=== PATIENT | female | born 1955 | race African-American/Black ===

== ENCOUNTER 2020-09-03 11:55 | Emergency (ER) | payer OTHER, SELFPAY ==
--- NOTE | ~2020-09-03 | US_ITS ---
EXAMINATION: US venous doppler LE RT DATE: 09/03/2020 14:09 INDICATION: Right lower limb pain. TECHNIQUE: Grayscale ultrasound images without and with compression and Doppler ultrasound images of the right lower extremity veins were obtained. COMPARISON: None. FINDINGS: The visualized portions of right common femoral vein, profunda (deep) femoral vein, femoral vein, pop liteal vein, peroneal veins, posterior tibial veins, and greater saphenous vein outflow are patent. IMPRESSION: 1. No deep venous thrombosis. Reviewed, dictated and finalized at location A. [employer]
[2020-09-03 12:19] VITALS: BP 160/89; PULSE 79; RESP 17; TEMP 36.2; O2SAT 98
[2020-09-03 12:29] VITALS: BP 160/89; PULSE 79; RESP 15; TEMP 36.2; O2SAT 98
--- NOTE | 2020-09-03 14:24 | ED.GENADULT ---
HPI - General Adult General Chief complaint: Extremity Injury, Lower Stated complaint: Right Leg Pain Time Seen by Provider: 09/03/20 12:43 Source: patient Mode of arrival: ambulatory Limitations: no limitations History of Present Illness HPI narrative: Patient is a 64-year-old female who presents with right leg pain that has been present now off and on for several weeks worse with activity and movement with intermittent cramping when she is more active in the calf. Patient notes that over the last several days she has had anterior right goldman pain is a mild aching pain. Patient denies injury or trauma or similar occurrence in the past. Patient has not taken anything for his symptoms. Patient denies chest pain shortness of breath URI symptoms Related Data Allergies Allergy/AdvReac Type Severity Reaction Status Date / Time codeine Allergy Nausea and Verified 09/03/20 12:18 Vomiting Review of Systems Review of Systems: All systems reviewed & are unremarkable except as noted in HPI and below PMFSH Past Medical History Medical History Arthritis Social History Social History (Updated 09/03/20 @ 14:25 by Stephen Wilson PA-C) Smoking status: Never smoker Gender identity (if verbalized by the patient): Female Exam Narrative: Exam Narrative: GENERAL: Well-appearing, well-nourished, and in no acute distress. HEAD: Normocephalic, atraumatic. EYES: PERRLA and EOMI. ENT: Nares clear, no rhinorrhea or epistaxis. Mucous membranes moist. CHEST: Clear to auscultation. No respiratory distress. No wheezes rales or rhonchi HEART: Regular rate and rhythm. No murmur heard. Normal peripheral pulses. EXTREMITIES: Normal range of motion. No edema. No deformity of the right lower extremity mild tenderness to the anterior right goldman SKIN: Warm, dry, no rash. NEURO: No focal deficits. Alert and oriented x3. Cranial nerves II through XII grossly intact PSYCH: Normal mood and affect. Course Course Emergency Course: Patient presented with concern for DVT in no distress no blood clot on ultrasound will be discharged with outpatient follow-up with primary care provided with reasons to return Vital Signs Vital signs: Vital Signs Temperature 97.1 F L 09/03/20 12:19 Pulse Rate 79 09/03/20 12:19 Respiratory Rate 17 09/03/20 12:19 Blood Pressure 160/89 H 09/03/20 12:19 Pulse Oximetry 98 09/03/20 12:19 Temperature 97.1 F L 09/03/20 12:29 Pulse Rate 79 09/03/20 12:29 Respiratory Rate 15 09/03/20 12:29 Blood Pressure 160/89 H 09/03/20 12:29 Pulse Oximetry 98 09/03/20 12:29 Medical Decision Making MDM Narrative Medical decision making narrative: Patients injury or pain is consistent with musculoskeletal etiology. No signs of neurological or vascular compromise on exam. Compartments and tisues are soft without signs of compartment syndrome. Pain is felt appropriate for further evaluation on an outpatient basis. Vital Signs Vital Signs: Vital Signs Temperature 97.1 F L 09/03/20 12:19 Pulse Rate 79 09/03/20 12:19 Respiratory Rate 17 09/03/20 12:19 Blood Pressure 160/89 H 09/03/20 12:19 Pulse Oximetry 98 09/03/20 12:19 Temperature 97.1 F L 09/03/20 12:29 Pulse Rate 79 09/03/20 12:29 Respiratory Rate 15 09/03/20 12:29 Blood Pressure 160/89 H 09/03/20 12:29 Pulse Oximetry 98 09/03/20 12:29 Discharge Plan Discharge Clinical Impression: Leg pain, right Patient Disposition: Home, Self-Care Condition: Stable Instructions: Antibiotic Form, Leg Pain (ED) Additional Instructions: Follow up with your primary care provider within 1-2 days to set up for reevaluation. Go to ER for shortness of breath, difficulty breathing, chest pain, fever/chills, weakness, nauseau/vomitting, etc. or any other concerns. Take any prescribed medications as directed. If you do not have a drug allergy to tylenol a
--- NOTE | 2020-09-03 14:55 | PC.NURSE ---
ATTEMPTED TO D/C PT, PT STATES THAT SHE WANTS TO SPEAK WITH PROVIDER PRIOR TO D/C.
--- NOTE | 2020-09-03 14:58 | PC.NURSE ---
PROVIDER AT BEDSIDE AT THIS TIME TO DISCUSS RESULTS.
[2020-09-03 15:21] VITALS: BP 133/75; PULSE 72; RESP 16; O2SAT 100
== END 2020-09-03 15:21 | disposition home or self-care (01) ==
PROVIDERS: Emergency Provider Emergency Medicine; PCP Internal Medicine
DX: M79.661 Pain in right lower leg (principal); M19.90 Unspecified osteoarthritis, unspecified site
CPT/HCPCS: 93971; 99284